=== PATIENT | male | born 1970 | race Caucasian/White ===

== ENCOUNTER 2024-02-02 23:19 | Emergency (ER) | payer BC, SELFPAY ==
--- NOTE | ~2024-02-02 | CT_ITS ---
EXAMINATION: CT HEAD WITHOUT CONTRAST CLINICAL INFORMATION: Right Abreu's palsy COMPARISON: None available. TECHNIQUE: Contiguous axial imaging was performed from the skull base to vertex without intravenous administration of contrast. This CT examination was performed using dose optimization techniques as appropriate, variously including the following: *Automated exposure control *Adjustment of mA and/or kV according to patient size (this includes techniques or standardized protocols for targeted exams where dose is matched to indication/reason for exam; i.e. extremities or head) *Use of iterative reconstruction technique DLP: 727 mGy-cm FINDINGS: There is no evidence of acute intracranial hemorrhage or territorial infarction. No abnormal mass-effect or midline shift is seen. [place] to white matter differentiation is well preserved. No extra-axial fluid collections are identified. The ventricles are normal in size. There is no abnormal attenuation within the brain parenchyma. The osseous structures and soft tissues are normal. The mastoid air cells and visualized portions of the paranasal sinuses are well-aerated. CT/CT head/brain wo IV con IMPRESSION: No acute intracranial pathology. Electronically signed by: Ladarius Akhtar MD 02/03/2024 01:31 AM EDT
[2024-02-02 23:22] VITALS: BP 169/100; PULSE 104; RESP 18; TEMP 36.9; O2SAT 97; BMI 32.3
--- NOTE | 2024-02-02 23:34 | ED.NEUROSD ---
HPI - Neuro Symptoms/Deficit General Chief Complaint: Neuro Symptoms/Deficit Stated Complaint: Stroke Symptoms Time Seen by Provider: 02/02/24 23:26 Source: patient Mode of arrival: EMS Limitations: no limitations History of Present Illness ED Provider: brian MOTT Narrative: Patient no significant past medical history woke up on 01/30 at 08:00 went to bathroom while brushing his teeth noticed right side numb since then noticed unable to close his right eye unable to eat food as it drools on the right side no other motor weakness no history of similar palsy in the past Related Data Previous Rx's ?Medication ?Instructions ?Recorded carboxymethylcellulose sodium 0.5 1 drp ophthalmic (eye) QID #15 mL 02/03/24 % eye drops (Lubricant Eye Drops) prednisone 20 mg tablet 60 mg (3 x 20 mg) PO DAILY #21 tabs 02/03/24 valacyclovir 1 gram tablet 1,000 mg PO TID #21 tabs 02/03/24 (Valtrex) Allergies Allergy/AdvReac Type Severity Reaction Status Date / Time No Known Allergies Allergy Verified 02/02/24 23:27 Review of Systems Review of Systems: Yes all other systems are reviewed and are negative [facility] Social History Social History Smoked in Last 30 Days: Yes Substance Use Type: Marijuana Substance Use Frequency: Occasionally Advance Directives: No Advance Directives Information Provided: Yes Do you have a plan to hurt others: No Plan Physical Exam Vital Signs: Vital Signs: Last Vital Signs Temp 98.6 F 02/03/24 02:46 Pulse 89 02/03/24 02:46 Resp 18 02/03/24 02:46 BP 143/84 H 02/03/24 02:46 Pulse Ox 97 02/03/24 02:46 O2 Del Method Room Air 02/03/24 02:46 BMI result Body Mass Index 32.3 Appearance: Alert. Oriented X3. No acute distress. Eyes: PERRLA, No Nystagmus ENT: Pharynx normal. Oral Mucosa moist Neck: Normal inspection. Neck supple. CVS: Normal heart rate and rhythm. Pulses normal. Respiratory: No respiratory distress. Equal air entry bilateral, no wheezing/rales/rhonchi Abdomen: Soft and nontender. Bowel sounds are present, no mass palpable, no CVA tenderness Skin: Skin warm and dry. Normal skin color. Normal skin turgor. Extremities: No lower extremity edema. No calf tenderness Neuro: Oriented X 3. No motor deficit. 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 Medications Administered Discontinued Medications Generic Name Dose Route Start Last Admin Trade Name Freq PRN Reason Stop Dose Admin Prednisone 60 mg 02/02/24 23:26 02/02/24 23:53 Prednisone 20 Mg Tablet PO 02/02/24 23:27 60 mg ONCE ONE Administration Valacyclovir HCl 1,000 mg 02/02/24 23:26 02/02/24 23:54 Valacyclovir Hcl 1,000 Mg Tablet PO 02/02/24 23:27 1,000 mg ONCE ONE Administration Medical Decision Making Medical Decision Making [facility] Narrative: Patient with right-sided Abreu's palsy CT scan negative for CVA discharge patient on prednisone and Valtrex Lab Data [facility] Lab Attestation statement: I reviewed the patient's lab results. 02/02/24 23:41 02/02/24 23:41 Labs: Lab Results 02/02/24 Range/Units 23:41 WBC 8.3 (4.8-10.8) X10*3/uL RBC 5.10 (4.60-5.80) X10*6/uL Hgb 16.5 (14.0-18.0) g/dl Hct 47.4 (42.0-52.0) % MCV 92.9 (80.0-98.0) fL MCH 32.4 (27.0-33.0) pg MCHC 34.8 (31.0-36.0) g/dl RDW 11.2 (11.0-16.0) % Plt Count 146 L (160-400) X10*3/uL MPV 10.2 (9.4-12.4) fL Immature Gran % (Auto) 0.5 H (0.0-0.4) % Neut % (Auto) 38.9 L (45-73) % Lymph % (Auto) 43.2 H (20-40) % [place] % (Auto) 12.1 H (2-11) % Eos % (Auto) 4.5 H (0-4) % Baso % (Auto) 0.8 (0-2) % Lymph # (Auto) 3.6 (1.2-4.9) X10*3/uL [place] # (Auto) 1.0 (0.1-1.2) X10*3/uL Eos # (Auto) 0.4 (0.0-0.4) X10*3/uL Baso # (Auto) 0.1 (0.0-0.2) X10*3/uL Abs Immat Gran (auto) 0.04 H (0.00-0.03) X10*3/uL Absolute Neuts (auto) 3.2 (2.0-8.3) x10*3/uL Absolute Nucleated RBC 0.000 (0.0-0.012) X10*3/uL Nucleated RBC % (auto) 0.0 (0.0-0.2) /100WBC ESR 7 (0-15) MM/HR Sodium 143 (135-145) mmol/L Potassium 4.7 (3.3-5.1) mmol/L Chloride 100 (96-108) mmol/L Carbon Dioxide 25 (22-29) mmol/L Anion Gap 23 H (12-20) BUN 9 (9-16) mg/dL Creatinine 0.85 (0.5-1.4) mg/dL Estim Creat Clear Calc 134.2 Estimated GFR > 60 Random Glucose 262 H (60-115) mg/dL Calcium 10.5 H (8.4-10.2) mg/dL Total Bilirubin 0.3 (0.0-1.0) mg/dL AST 52 H (5-37) U/L ALT 65 H (0-40) U/L Alkaline Phosphatase 90 (39-117) U/L Total Protein 8.6 H (6.5-8.0) g/dL Albumin 4.9 (3.5-5.0) g/dL Independent Interpretation I performed an independent interpretation of an: CT Scan Radiology Impression Discussion of test interpretation with radiology: I have reviewed the radiologist's reading. NIH Stroke Scale Internal: Initial- Upon Arrival Level of Consciousness: Alert Level of Consciousness Questions: Answers both questions correctly Level of Consciousness Commands: Performs both tasks correctly Best Gaze: Normal Visual: No visual loss Facial Palsy: Partial paralysis (right side) Motor Arm (Right): No drift Motor Arm (Left): No drift Motor Leg (Right): No drift Motor Leg (Left): No drift Limb Ataxia: Absent Sensory: Normal Best Language: No aphasia Dysarthia: Normal Extinction and Inattention: No abnormality Score: 2 Discharge Plan Discharge Clinical Impression: Abreu's palsy Patient Disposition: Home, Self-Care Instructions: Abreu Palsy (ED) Additional Instructions: Care and cautions as advised Use lubricant eyedrops as prescribed Medication as prescribed Facial exercise as advised Follow up with neurologist Prescriptions: New valacyclovir [Valtrex] 1 gram tablet 1,000 mg PO TID Qty: 21 0RF prednisone 20 mg tablet 60 mg PO DAILY Qty: 21 0RF carboxymethylcellulose sodium [Lubricant Eye Drops] 0.5 % drops 1 drp ophthalmic (eye) QID Qty: 15 0RF Referrals: Zeinab Carson MD [Physician] - 1 week Stand Alone Forms: Work/School Release Interventions: ED Discharge Assessment Last Done: 02/03/24 02:46 Discharge Date/Time: 02/03/24 02:50 Print Language: Icelandic
[2024-02-02 23:45] LABS: MANUAL DIFF FLAG NO
[2024-02-02 23:51] LABS: Basophils Absolute Auto 0.1 X10*3/uL (0.0-0.2); Basophils Percent Auto 0.8 % (0-2); Eosinophils Absolute Auto 0.4 X10*3/uL (0.0-0.4); Eosinophils Percent Auto 4.5 % (0-4); Hematocrit 47.4 % (42.0-52.0); Hemoglobin 16.5 g/dl (14.0-18.0); Imm Gran Abs Auto 0.04 X10*3/uL (0.00-0.03); Imm Gran Pct Auto 0.5 % (0.0-0.4); Lymphocytes Absolute Auto 3.6 X10*3/uL (1.2-4.9); Lymphocytes Percent Auto 43.2 % (20-40); Mean Corpuscular HGB Conc 34.8 g/dl (31.0-36.0); Mean Corpuscular Hemoglobin 32.4 pg (27.0-33.0); Mean Corpuscular Volume 92.9 fL (80.0-98.0); Mean Platelet Volume 10.2 fL (9.4-12.4); Monocytes Percent Auto 12.1 % (2-11); Neutrophils Absolute Auto 3.2 x10*3/uL (2.0-8.3); Neutrophils Percent Auto 38.9 % (45-73); Platelet Count 146 X10*3/uL (160-400); Red Cell Distribution Width 11.2 % (11.0-16.0); White Blood Count 8.3 X10*3/uL (4.8-10.8)
[2024-02-02] MEDS: predniSONE 20 MG TABLET 60 MG PO (23:53)
[2024-02-02] MEDS: valACYclovir HCL 1,000 MG TABLET 1000 MG PO (23:54)
[2024-02-03 00:06] LABS: Alanine Aminotransferase 65 U/L (0-40); Alkaline Phosphatase 90 U/L (39-117); Aspartate Amino Transferase 52 U/L (5-37); Bilirubin Total 0.3 mg/dL (0.0-1.0); Blood Urea Nitrogen 9 mg/dL (9-16); Creatinine Clr Calc Pharmacy 134.2; Estimated Glomerular Filt Rate > 60; Glucose Random 262 mg/dL (60-115); Total Protein 8.6 g/dL (6.5-8.0)
[2024-02-03 00:13] LABS: Albumin Level 4.9 g/dL (3.5-5.0); Anion Gap 23 (12-20); Calcium 10.5 mg/dL (8.4-10.2); Carbon Dioxide 25 mmol/L (22-29); Chloride 100 mmol/L (96-108); Potassium 4.7 mmol/L (3.3-5.1); Sodium 143 mmol/L (135-145)
[2024-02-03 00:20] LABS: Erythrocyte Sedimentation Rate 7 MM/HR (0-15)
[2024-02-03 02:14] VITALS: BP 141/98; PULSE 92; RESP 17; TEMP 36.6; O2SAT 94
[2024-02-03 02:46] VITALS: BP 143/84; PULSE 89; RESP 18; TEMP 37; O2SAT 97
== END 2024-02-03 02:50 | disposition home or self-care (01) ==
PROVIDERS: Emergency Provider Internal Medicine
DX: G51.0 Bell's palsy (principal); Z79.899 Other long term (current) drug therapy
CPT/HCPCS: 36415; 70450; 80053; 85025; 85652; 99284